=== PATIENT | female | born 2000 | race Caucasian/White ===

== ENCOUNTER 2020-11-11 12:51 | Emergency (ER) | payer OTHER ==
[~2020-11-11] VITALS: Ht 149.9 cm; Wt 58.1 kg
[2020-11-11 14:46] VITALS: BP 109/75
== END 2020-11-11 14:47 | disposition home or self-care (01) ==
LOC: M.ERS 12:51
DX: M54.9 Dorsalgia, unspecified (principal); Z53.21 Procedure and treatment not carried out due to patient leaving prior to being seen by health care provider